=== PATIENT | female | born 1945 | race Caucasian/White ===

== ENCOUNTER 2020-07-10 08:54 | Day surgery (SDC) | payer MEDICARE ==
[2020-07-10] VITALS (12 sets, daily range): BP systolic 113–179; BP diastolic 57–96
[~2020-07-10] VITALS: Ht 165.1 cm; Wt 92.9 kg
[~2020-07-10 08:54] MED LIST: APIX5TAB3 PO; DEXA1TAB PO; ENAL-80 PO; GLUC1CAP17 PO; MELO-102 PO; METH-604 PO
[2020-07-10] MEDS ORDERED: tetracaine 1% (10mg/ml) pres. free inj. INTSP ONE (09:30)
[2020-07-10] MEDS ORDERED: WARF2.5T82 PO (09:34)
[2020-07-10] MEDS ORDERED: BUME2TAB7 PO (09:34)
[2020-07-10] MEDS ORDERED: MULT-1260 PO (09:34)
[2020-07-10] MEDS ORDERED: ACET-2319 PO (09:34)
[2020-07-10] MEDS ORDERED: FERR-116 PO (09:34)
[2020-07-10] MEDS ORDERED: CHOL200012 PO (09:34)
[2020-07-10] MEDS ORDERED: MULT-1130 PO (09:34)
[2020-07-10] MEDS ORDERED: CARV3.1244 PO (09:34)
[2020-07-10] MEDS ORDERED: albumin 25% 100mL bottle x 1 IV PRN (09:40)
[2020-07-10] MEDS ORDERED: diphenhydrAMINE 50 mg/ml inj IV ONE (10:45)
[2020-07-10] MEDS ORDERED: ondansetron/PF 4mg/2ml inj IV ONE (10:45)
== END 2020-07-10 13:30 | disposition home or self-care (01) ==
LOC: SSTAY O 08:54
PROVIDERS: ATTEND Radiology Vascular & Interventional Radiology
DX: R18.8 Other ascites (principal); D53.9 Nutritional anemia, unspecified; E53.8 Deficiency of other specified B group vitamins; M19.90 Unspecified osteoarthritis, unspecified site; I11.0 Hypertensive heart disease with heart failure; I50.9 Heart failure, unspecified; E03.9 Hypothyroidism, unspecified; D72.819 Decreased white blood cell count, unspecified; D69.6 Thrombocytopenia, unspecified; L65.9 Nonscarring hair loss, unspecified; Z86.718 Personal history of other venous thrombosis and embolism; Z79.01 Long term (current) use of anticoagulants; Z88.8 Allergy status to other drugs, medicaments and biological substances; Z88.5 Allergy status to narcotic agent; Z79.899 Other long term (current) drug therapy; Z86.19 Personal history of other infectious and parasitic diseases
CPT/HCPCS: 36415; 49083; 85610; P9047

== ENCOUNTER 2022-12-20 13:03 | Emergency (ER) | payer MEDICARE, OTHER ==
[~2022-12-20] VITALS: Ht 165.1 cm; Wt 90.0 kg
[~2022-12-20 13:03] MED LIST changes: +ACET-2319 PO; -APIX5TAB3 PO; +BUME2TAB7 PO; +CARV3.1244 PO; +CHOL200012 PO; -DEXA1TAB PO; +FERR-116 PO; -GLUC1CAP17 PO; +MULT-1130 PO; +MULT-1260 PO; +WARF2.5T82 PO
[2022-12-20 15:37] LABS: BASOPHILS % (AUTO) 0.2 % (0-1); EOSINOPHILS % (AUTO) 1.1 % (0-6); HEMATOCRIT 31.7 % (35.0-45.0); HEMOGLOBIN 10.6 g/dl (12.0-16.0); LYMPHOCYTES # (AUTO) 0.4 X10'3 (1.1-4.8); LYMPHOCYTES % (AUTO) 20.5 % (21-51); MEAN CORPUSCULAR HGB CONC 33.5 g/dL (33.0-36.5); MEAN CORPUSCULAR VOLUME 95.4 FL (78-98); MEAN PLATELET VOLUME 8.4 FL (7.4-10.4); MONOCYTES # (AUTO) 0.2 X10'3 (0-0.9); MONOCYTES % (AUTO) 11.5 % (2-12); NEUTROPHILS # (AUTO) 1.4 X10'3 (1.8-7.7); NEUTROPHILS % (AUTO) 66.7 % (42-75); PLATELET COUNT 73 X10'3 (140-440); RED BLOOD COUNT 3.32 X10'6 (4.20-5.60); RED CELL DISTRIBUTION WIDTH 17.3 % (11.5-14.5)
[2022-12-20 15:48] LABS: APTT 27 SECONDS (22-32); INR 1.2 INR; PROTHROMBIN TIME 12.9 SECONDS (9.0-12.0)
[2022-12-20 15:53] LABS: ALANINE AMINOTRANSFERASE 26 U/L (12-78); ALBUMIN 2.9 G/DL (3.4-5.0); ALBUMIN/GLOBULIN RATIO 0.9 (1.1-1.5); ALKALINE PHOSPHATASE 135 IU/L (46-116); AMYLASE 42 U/L (25-115); ANION GAP 7 (8-16); ASPARTATE AMINO TRANSFERASE 31 U/L (10-37); BLOOD UREA NITROGEN 23 MG/DL (7-18); BUN/CREATININE RATIO 24.2 (10.0-20.0); CHLORIDE 113 MMOL/L (99-107); CREATININE 0.95 MG/DL (0.40-0.90); GLUCOSE 97 MG/DL (70-104); POTASSIUM 3.5 MMOL/L (3.5-5.1); SODIUM 146 MMOL/L (135-145); TOTAL CARBON DIOXIDE 26.3 MMOL/L (24-32); TOTAL PROTEIN 6.2 G/DL (6.4-8.2); eCRCL 45 ML/MIN; eGFR 57 ML/MIN
[2022-12-20 15:54] LABS: PLATELET ESTIMATE DECREASED; TOTAL CELLS COUNTED 100
[2022-12-20 15:55] LABS: ANISOCYTOSIS 1+; ELLIPTOCYTES FEW; SMUDGE CELLS FEW
[2022-12-20 16:12] LABS: LIPASE 24 U/L (16-77)
[2022-12-20 21:34] LABS: BILIRUBIN,URINE NEGATIVE (Neg); CLARITY,URINE CLOUDY (Clear); COLOR,URINE YELLOW (Yellow); GLUCOSE, URINE NEGATIVE (Neg); KETONES,URINE TRACE mg/dl (Neg); LEUKOCYTE ESTERASE ,URINE LARGE (Neg); NITRITES, URINE POSITIVE (Neg); OCCULT BLOOD,URINE MODERATE (Neg); PROTEIN,URINE 30 mg/dl (Neg); UROBILINOGEN,URINE 0.2 E.U/dL (0.2-1.0)
[2022-12-20 21:43] LABS: UA COLLECTION TYPE VOIDED
[2022-12-20 21:45] LABS: BACTERIA,URINE 4+ /HPF (Neg); SQUAMOUS EPITHELIAL CELL,UR FEW /LPF (FEW); WBC,URINE TNTC /HPF (0-4)
[2022-12-20] MEDS ORDERED: CefTRIAXone/D5W-Rocephin 1gm 50 ML IV ONE (22:30)
[2022-12-20] MEDS ORDERED: normal saline 1000ml 1,000 ML IV ONE (22:35)
[2022-12-20] MEDS ORDERED: iohexol 300mg/ml 100ml inj. ONE (22:56)
[2022-12-21] MEDS ORDERED: CEPH250T PO (02:34)
[2022-12-21] MEDS ORDERED: APIX2.5T PO (02:34)
[2022-12-21 02:36] VITALS: PULSE 100
[2022-12-21 02:57] VITALS: BP 159/88; RESP 14; TEMP 98.2; O2SAT 95
== END 2022-12-21 03:01 | disposition home or self-care (01) ==
LOC: ER 13:04
DX: K55.069 Acute infarction of intestine, part and extent unspecified (principal); N39.0 Urinary tract infection, site not specified; Z88.8 Allergy status to other drugs, medicaments and biological substances; Z88.4 Allergy status to anesthetic agent; Z88.5 Allergy status to narcotic agent; Z91.018 Allergy to other foods; Z79.1 Long term (current) use of non-steroidal anti-inflammatories (NSAID); Z79.2 Long term (current) use of antibiotics; Z79.899 Other long term (current) drug therapy
CPT/HCPCS: 74177; 80053; 81001; 82150; 83690; 85007; 85025; 85610; 85730; 87077; 87088; 87186; 93005; 96365; 96366; 99285; J0696; J3490; J7030; Q9967